=== PATIENT | male | born 1970 | race Caucasian/White ===

== ENCOUNTER 2019-06-12 23:03 | Emergency (ER) | payer OTHER ==
[2019-06-12] MEDS ORDERED: SODIUM CHLORIDE 0.9% 1,000 ML IV ONE (23:06)
[2019-06-12] MEDS ORDERED: DIPH,PERTUS(ACELL)TETVAC-LF 0.5 ML VIAL IM ONE (23:06)
[2019-06-12 23:15] VITALS: RESP 20; TEMP 98.1
[2019-06-12] MEDS ORDERED: SODIUM CHLORIDE 0.9% 1,000 ML IV SCH (23:15)
[2019-06-12] MEDS ORDERED: fentaNYL (PF) 50 MCG/ML 2 ML AMP IM STA (23:17)
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
[2019-06-13 00:02] VITALS: BP 172/108; PULSE 87
== END 2019-06-13 00:06 | disposition other institution (70) ==
LOC: EC 23:03
DX: T22.212A Burn of second degree of left forearm, initial encounter (principal); T24.212A Burn of second degree of left thigh, initial encounter; T25.222A Burn of second degree of left foot, initial encounter; T31.0 Burns involving less than 10% of body surface; Z23 Encounter for immunization; Z79.899 Other long term (current) drug therapy; T75.00XA Unspecified effects of lightning, initial encounter; X03.0XXA Exposure to flames in controlled fire, not in building or structure, initial encounter; Y92.009 Unspecified place in unspecified non-institutional (private) residence as the place of occurrence of the external cause
CPT/HCPCS: 90715; 99284; 96360; 96372; 90471; J3010